=== PATIENT | female | born 1950 | race Caucasian/White ===

== ENCOUNTER → 2016-08-25 | Outpatient (CLI) | payer OTHER ==
[~2016-08-25] MED LIST: DELTASONE DPS10 MG PO; ELIQUIS5 MG PO; FOLVITE-DPS1 MG PO; GLUCOPHAGE-DPS500 MG PO; KLOR-CON M2020 ME1 PO; MAG-OX400 MG PO; METHOTREXA25 MG/1 M6 SQ; PROTONIX40 MG PO
== END | disposition home or self-care (01) ==
LOC: PTH.S 08-07 07:30
DX: E11.9 Type 2 diabetes mellitus without complications (principal); E87.6 Hypokalemia

== ENCOUNTER → 2016-10-01 | Outpatient (CLI) | payer OTHER | END | disposition home or self-care (01) | LOC: PTH.S 09-05 08:00 | DX: E87.6 Hypokalemia (principal); E11.9 Type 2 diabetes mellitus without complications ==